=== PATIENT | female | born 1935 | race Caucasian/White ===

== ENCOUNTER → 2018-11-11 | Outpatient (REF) | payer OTHER | LOC: M SFHCCAPE 13:01 | PROVIDERS: ATTEND Physician Assistant | DX: R19.7 Diarrhea, unspecified (principal) | CPT/HCPCS: 87507; G0463 ==

== ENCOUNTER 2019-08-21 09:58 | Emergency (ER) | payer OTHER ==
[2019-08-21] MEDS ORDERED: LISI10TA4 PO (10:19)
[2019-08-21] MEDS ORDERED: SIMV40TA20 PO (10:19)
[2019-08-21] MEDS ORDERED: CELE1CAP9 PO (10:19)
[2019-08-21] MEDS ORDERED: HYDR12.55 PO (10:19)
[2019-08-21] MEDS ORDERED: METO1TAB32 PO (10:19)
[2019-08-21] MEDS ORDERED: ONDANSETRON 4MG/2ML VIAL IV ONE (10:45)
[2019-08-21] MEDS ORDERED: MORPHINE 2 MG/ML 1ML VIAL (J2270) IV ONE (10:45)
--- NOTE | 2019-08-21 11:10 | REP ---
RIGHT TIB/FIB SERIES: Four views. HISTORY: Trauma. FINDINGS: There is mild diffuse osteopenia. Osteoarthritis is seen at the knee and there is vascular calcification. There is soft tissue swelling in the pretibial soft tissues. No fracture or subluxation is visible. IMPRESSION: No fracture noted. Osteoarthritic changes and diffuse osteopenia. Electronically Signed by Dewayne Harris MD 08/21/2019 11:49 A
--- NOTE | 2019-08-21 11:12 | REP ---
RIGHT ANKLE SERIES: Four views. HISTORY: Trauma. FINDINGS: Four views right ankle demonstrate extensive vascular calcification. Ankle mortise is intact. There is soft tissue swelling and irregularity medially suggesting a traumatic soft tissue deficit. No fracture or opaque foreign body seen. IMPRESSION: Soft-tissue swelling and soft tissue deficit. Vascular calcification and diffuse osteopenia. No fracture or opaque foreign body noted. Electronically Signed by Dewayne Harris MD 08/21/2019 11:49 A
[2019-08-21] MEDS ORDERED: BUPIVACAINE HCL 0.5% 10ML VIAL SC ONE (11:15)
[2019-08-21] MEDS ORDERED: Rolling Walker XX (14:50)
[2019-08-21] MEDS ORDERED: DOXY-350 PO (14:50)
[2019-08-21] MEDS ORDERED: DOXYCYCLINE HYCLATE 100MG TABLET PO ONE (15:00)
[2019-08-21 15:13] VITALS: BP 185/86
== END 2019-08-21 15:30 | disposition home or self-care (01) ==
LOC: EDBD 09:58 → M ED 09:58
DX: S81.811A Laceration without foreign body, right lower leg, initial encounter (principal); S81.001A Unspecified open wound, right knee, initial encounter; S81.802A Unspecified open wound, left lower leg, initial encounter; S41.002A Unspecified open wound of left shoulder, initial encounter; V86.55XA Driver of 3- or 4- wheeled all-terrain vehicle (ATV) injured in nontraffic accident, initial encounter; Y92.099 Unspecified place in other non-institutional residence as the place of occurrence of the external cause; Y93.9 Activity, unspecified; Y99.9 Unspecified external cause status; I10 Essential (primary) hypertension; E78.5 Hyperlipidemia, unspecified; M17.11 Unilateral primary osteoarthritis, right knee; I70.90 Unspecified atherosclerosis; M85.871 Other specified disorders of bone density and structure, right ankle and foot; Z79.899 Other long term (current) drug therapy; Z99.89 Dependence on other enabling machines and devices; Z88.0 Allergy status to penicillin; Z88.1 Allergy status to other antibiotic agents; Z88.2 Allergy status to sulfonamides; Z88.8 Allergy status to other drugs, medicaments and biological substances
CPT/HCPCS: 73590; 73610; 96374; 96375; 97116; 97161; 99284; J2270; J2405

== ENCOUNTER → 2019-08-26 | Outpatient (REF) | payer OTHER ==
[~2019-08-26] MED LIST: CELE1CAP9 PO; DOXY-350 PO; DOXY100C37; DOXY100C37 PO; HYDR12.55 PO; LISI10TA4 PO; METO1TAB32 PO; Rolling Walker XX; SIMV40TA20 PO
== END ==
LOC: M SFHCCLAY 14:48
PROVIDERS: ATTEND Physician Assistant
DX: S81.811A Laceration without foreign body, right lower leg, initial encounter (principal); V86.55XA Driver of 3- or 4- wheeled all-terrain vehicle (ATV) injured in nontraffic accident, initial encounter; Y92.9 Unspecified place or not applicable

== ENCOUNTER 2019-09-01 13:47 | Emergency (ER) | payer OTHER ==
[~2019-09-01] VITALS: Ht 160 cm; Wt 56.8 kg
[~2019-09-01 13:47] MED LIST changes: -DOXY100C37; -DOXY100C37 PO
[2019-09-01] MEDS ORDERED: DOXY100C37 (13:55)
[2019-09-01 15:17] LABS: BASO # 0.1 10^3/uL (0.0-0.2); BASO % 0.8 % (0.0-1.0); EOS # 0.1 10^3/uL (0.0-0.5); HEMATOCRIT 37.7 % (36.0-47.0); HEMOGLOBIN 11.9 g/dl (12.0-15.5); LYMPH # 0.8 10^3/uL (1.5-5.0); LYMPH % 11.9 % (24.0-44.0); MEAN CORPUSCULAR HEMOGLOBIN 30.9 pg (27.0-33.0); MEAN CORPUSCULAR HGB CONC 31.6 g/dl (32.0-36.5); MEAN CORPUSCULAR VOLUME 97.9 fl (80.0-96.0); MONO # 0.4 10^3/uL (0.0-0.8); MONO % 6.7 % (0.0-5.0); NEUTROPHILS % 78.4 % (36.0-66.0); RED BLOOD COUNT 3.85 10^6/uL (4.00-5.40); WHITE BLOOD COUNT 6.4 10^3/uL (4.0-10.0)
[2019-09-01] MEDS ORDERED: DOXY100C37 PO (16:29)
[2019-09-01 16:40] VITALS: BP 139/64
== END 2019-09-01 16:42 | disposition home or self-care (01) ==
LOC: M ED 13:47
DX: Z48.02 Encounter for removal of sutures (principal); Z79.899 Other long term (current) drug therapy; Z88.0 Allergy status to penicillin; Z88.2 Allergy status to sulfonamides; Z88.8 Allergy status to other drugs, medicaments and biological substances; Z88.1 Allergy status to other antibiotic agents; Z99.89 Dependence on other enabling machines and devices

== ENCOUNTER 2020-10-27 18:28 | Emergency (ER) | payer OTHER ==
[~2020-10-27] VITALS: Ht 157.5 cm; Wt 50.0 kg
[~2020-10-27 18:28] MED LIST changes: +DOXY1CAP62; +DOXY1CAP62 PO; +LISI10TA22 PO; -LISI10TA4 PO
[2020-10-27 22:33] LABS: BASO % 0.6 % (0.0-1.0); EOS # 0.1 10^3/uL (0.0-0.5); EOS % 2.5 % (0.0-3.0); HEMATOCRIT 38.5 % (36.0-47.0); HEMOGLOBIN 12.3 g/dl (12.0-15.5); LYMPH # 0.9 10^3/uL (1.5-5.0); LYMPH % 16.4 % (24.0-44.0); MEAN CORPUSCULAR HEMOGLOBIN 29.4 pg (27.0-33.0); MEAN CORPUSCULAR HGB CONC 31.9 g/dl (32.0-36.5); MEAN CORPUSCULAR VOLUME 92.1 fl (80.0-96.0); MONO # 0.3 10^3/uL (0.0-0.8); MONO % 5.8 % (2.0-8.0); NEUTROPHILS # 3.9 10^3/uL (1.5-8.5); NEUTROPHILS % 74.5 % (36.0-66.0); PLATELET COUNT, AUTOMATED 112 10^3/uL (150-450); RED BLOOD COUNT 4.18 10^6/uL (4.00-5.40); WHITE BLOOD COUNT 5.2 10^3/uL (4.0-10.0)
[2020-10-27 23:05] LABS: ALBUMIN 3.5 GM/DL (3.2-5.2); BILIRUBIN,DIRECT 0.2 MG/DL (0.0-0.2); BILIRUBIN,TOTAL 0.6 MG/DL (0.2-1.0); CK-MB VALUE MASS 2.2 NG/ML (<3.6); MB/CK RELATIVE INDEX 2.24 (< OR =4); TOTAL PROTEIN 6.5 GM/DL (6.4-8.2); TROPONIN I 0.12 NG/ML (< 0.10)
--- NOTE | 2020-10-27 23:50 | REPVR ---
PROCEDURE INFORMATION: Exam: XR Chest Exam date and time: 10/27/2020 11:31 PM Age: 84 years old Clinical indication: Shortness of breath and other: Dizziness; Additional info: Dizzy TECHNIQUE: Imaging protocol: XR of the chest. Views: 2 views. COMPARISON: No relevant prior studies available. FINDINGS: Lungs: Mild pulmonary hyperinflation. There are some scattered coarse markings, particularly in the lingula with mild atelectasis or scar in the right mid lung. No definite focal infiltrates. Generalized lucency of lung. Pleural spaces: Unremarkable. No pleural effusion. No pneumothorax. Heart/Mediastinum: Mild cardiomegaly. Bones/joints: Mild kyphosis of the thoracic spine with increased AP dimension. IMPRESSION: 1. Mild cardiomegaly. 2. COPD and probable bullous change and probable scar in the right mid lung and lingula. Electronically signed by: John York On 10/27/2020 23:49:42 PM
--- NOTE | 2020-10-28 00:33 | REPVR ---
PROCEDURE INFORMATION: Exam: CT Head Without Contrast Exam date and time: 10/28/2020 12:08 AM Age: 84 years old Clinical indication: Dizziness; Additional info: Dizzy TECHNIQUE: Imaging protocol: Computed tomography of the head without contrast. Radiation optimization: All CT scans at this facility use at least one of these dose optimization techniques: automated exposure control; mA and/or kV adjustment per patient size (includes targeted exams where dose is matched to clinical indication); or iterative reconstruction. COMPARISON: No relevant prior studies available. FINDINGS: Brain: There is mild patchy low attenuation of deep white matter with areas of white matter gliosis or infarct. There is slight prominence of the peripheral sulci. Cerebral ventricles: There is slight prominence of the central ventricular system. Paranasal sinuses: Visualized sinuses are unremarkable. No fluid levels. Mastoid air cells: Visualized mastoid air cells are well aerated. Bones/joints: Unremarkable. No acute fracture. Soft tissues: Unremarkable. IMPRESSION: 1. Mild chronic ischemic white matter change and minimal atrophy with question of areas of subcortical white matter gliosis or white matter infarct. 2. Otherwise negative noncontrast head CT. Electronically signed by: John York On 10/28/2020 00:32:25 AM
[2020-10-28 01:56] VITALS: BP 154/71
--- NOTE | 2020-10-28 10:50 | ED PDOC ---
Post-Departure Follow-Up radiology rpeort faxed to the medical center Nuzhat Watkisn MD Oct 28, 2020 10:50
--- NOTE | 2020-10-29 11:30 | ECGEPIP ---
[facility] - ED Test Date: 2020-10-27 Pat Name: DEVIN BOB Department: Room: - Gender: Female [employer]: [facility] : 1935 Requested By: FRANCHESKA Amador PA-C Order Number: [id number] Reading MD: Nuzhat Marcelino Measurements Intervals Taylor Rate: 76 P: 39 IA: 130 QRS: -42 QRSD: 152 T: 105 QT: 458 QTc: 515 Interpretive Statements Sinus rhythm with premature atrial complexes Left axis deviation Left bundle branch block prolonged qtc clinical correlation Electronically Signed on 10-29-2020 11:30:42 EDT by Nuzhat Marcelino
== END 2020-10-28 02:00 | disposition home or self-care (01) ==
LOC: M ED 18:28
DX: R42 Dizziness and giddiness (principal); I10 Essential (primary) hypertension; J45.909 Unspecified asthma, uncomplicated; J44.9 Chronic obstructive pulmonary disease, unspecified; E78.5 Hyperlipidemia, unspecified; I44.7 Left bundle-branch block, unspecified; Z79.899 Other long term (current) drug therapy; Z88.1 Allergy status to other antibiotic agents; Z88.0 Allergy status to penicillin; Z88.2 Allergy status to sulfonamides; Z91.89 Other specified personal risk factors, not elsewhere classified; Z88.8 Allergy status to other drugs, medicaments and biological substances